=== PATIENT | female | born 1995 | race Caucasian/White ===

== ENCOUNTER 2017-01-12 15:32 | Emergency (ER) | payer OTHER ==
[~2017-01-12] VITALS: Ht 154.9 cm; Wt 46.4 kg
[2017-01-12 15:34] VITALS: BP 124/84
[2017-01-12] MEDS ORDERED: METHOCARBAMOL 750 MG TABLET ONE (16:00)
[2017-01-12] MEDS ORDERED: KETOROLAC 30 MG/1 ML ONE (16:00)
[2017-01-12] MEDS ORDERED: METHOCARBAMOL 500 MG TABLET PO ONE (16:00)
[2017-01-12] MEDS ORDERED: KETOROLAC 30 MG/1 ML IM ONE (16:00)
== END 2017-01-12 16:57 | disposition home or self-care (01) ==
LOC: ED 16:30
DX: S16.1XXA Strain of muscle, fascia and tendon at neck level, initial encounter (principal); S50.812A Abrasion of left forearm, initial encounter; S50.811A Abrasion of right forearm, initial encounter; V43.52XA Car driver injured in collision with other type car in traffic accident, initial encounter; Y93.89 Activity, other specified; Y99.8 Other external cause status; Y92.89 Other specified places as the place of occurrence of the external cause
CPT/HCPCS: 72050; 96372; 99284; J1885

== ENCOUNTER 2018-01-13 08:48 | Emergency (ER) | payer OTHER ==
[~2018-01-13] VITALS: Ht 154.9 cm; Wt 56.1 kg
[2018-01-13 08:50] VITALS: BP 126/82
[2018-01-13 10:13] LABS: ALANINE AMINOTRANSFERASE 74 U/L (12-78); ALBUMIN 3.2 g/dL (3.4-5.0); ANION GAP 6 mmol/L (5-15); CALCIUM 7.8 mg/dL (8.5-10.1); CHLORIDE 113 mmol/L (98-107); CREATININE 0.62 mg/dL (0.55-1.02)
[2018-01-13 10:27] LABS: ALKALINE PHOSPHATASE 54 U/L (45-117); BILIRUBIN,TOTAL 0.6 mg/dL (0.2-1.0); CREATINE KINASE, TOTAL 3312 U/L (26-192); TOTAL PROTEIN 5.9 g/dL (6.4-8.2)
== END 2018-01-13 11:14 | disposition home or self-care (01) ==
LOC: ED 11:08
DX: T79.6XXA Traumatic ischemia of muscle, initial encounter (principal); X58.XXXA Exposure to other specified factors, initial encounter; G43.909 Migraine, unspecified, not intractable, without status migrainosus; Z88.0 Allergy status to penicillin
CPT/HCPCS: 36415; 80053; 82550; 99284

== ENCOUNTER 2020-02-01 19:07 | Emergency (ER) | payer OTHER ==
[~2020-02-01] VITALS: Ht 160 cm; Wt 48.6 kg
[2020-02-01] MEDS ORDERED: NORE-74 PO (19:29)
--- NOTE | 2020-02-01 19:54 | NUR ---
TABATHA PIKE BS FOR EXAM. PT C/O LOWER ABD PAIN X 4 DAYS, STARTED GRADUALLY. LMP JUST STARTED. "DOESN'T FEEL LIKE MY PERIOD" PAIN. LIGHT MENSES FLOW. SEXUALLY ACTIVE; PROTECTED. PAIN IMPROVES W/ BURPING AND PASSING GAS. BM TODAY. DENIES PAIN W/ URINATION. PAIN "EXCRUTIATING" AFTER INTERCOURSE LAST NOC. NO PAIN MEDS TAKEN TODAY. PT TRAINING FOR [place]. PT REFUSING OFFER OF PAIN MED, AT THIS TIME.
--- NOTE | 2020-02-01 20:04 | NUR ---
LAST ORAL INTAKE: 1500 TODAY
[2020-02-01] MEDS ORDERED: SODIUM CHLORIDE FLUSH 10ML SYR IVF ONE (20:30)
[2020-02-01 20:41] LABS: ALANINE AMINOTRANSFERASE 20 U/L (12-78); ALBUMIN 3.9 g/dL (3.4-5.0); ANION GAP 4 mmol/L (5-15); CALCIUM 8.9 mg/dL (8.5-10.1); CHLORIDE 107 mmol/L (98-107); CREATININE 0.74 mg/dL (0.55-1.02)
[2020-02-01 20:42] LABS: BASOPHILS # (AUTO) 0.03 x10^3/uL (0-0.1); BASOPHILS % (AUTO) 0 % (0-1); EOSINOPHILS # (AUTO) 0.34 x10^3/uL (0-0.4); EOSINOPHILS % (AUTO) 5 % (1-7); LYMPHOCYTES # (AUTO) 3.36 x10^3/uL (1-3.4); LYMPHOCYTES % (AUTO) 45 % (22-44); MD NO; MEAN CORPUSCULAR HEMOGLOBIN 29.9 pg (27.0-34.8); MEAN CORPUSCULAR HGB CONC 33.9 g/dL (32.4-35.8); MEAN CORPUSCULAR VOLUME 88.1 fL (80-100); MONOCYTES # (AUTO) 0.76 x10^3/uL (0.2-0.8); MONOCYTES % (AUTO) 10 % (2-9); NEUTROPHILS # (AUTO) 3.01 x10^3/uL (1.8-6.8); NEUTROPHILS % (AUTO) 40 % (42-75); PLATELET COUNT 237 x10^3/uL (130-400); RED BLOOD COUNT 4.59 x10^6/uL (3.82-5.3); RED CELL DISTRIBUTION WIDTH 12.9 % (9.6-15.2)
--- NOTE | 2020-02-01 20:43 | NUR ---
CT PENDING LAB/BETA.
[2020-02-01 20:46] LABS: ALKALINE PHOSPHATASE 50 U/L (45-117); BILIRUBIN,TOTAL 0.4 mg/dL (0.2-1.0); TOTAL PROTEIN 7.7 g/dL (6.4-8.2)
[2020-02-01 20:57] LABS: MICROSCOPIC NOT IND
[2020-02-01] MEDS ORDERED: OMNIPAQUE 350 MG/ML, 100ML BOTTLE ONE (21:32)
--- NOTE | 2020-02-01 21:55 | NUR ---
PT REPORT TO CHRISTOFER DANG. PT CARE TRANSFERRED. PT AWAITING TEST RESULTS AND DISPOSITION.
[2020-02-01 22:15] VITALS: BP 109/59
--- NOTE | 2020-02-01 22:19 | NUR ---
PT AMBULATED TO BR WITHOUT DIFFICULTY. CHART UP FOR RECHECK.
--- NOTE | 2020-02-01 22:43 | NUR ---
ERP AT FOR RECHECK.
--- NOTE | 2020-02-01 23:08 | NUR ---
D/C INSTRUCTIONS, MEDS & F/U APPT RV'WD WITH PT, SHE VERBALIZES UNDERSTANDING. RX GIVEN X1. COPY OF CT RESULTS PROVIDED TO PT. PT AMBULATED OUT OF ED WITH BOYFRIEND WITHOUT DIFFICULTY.
== END 2020-02-01 23:08 ==
LOC: ED 23:02
DX: R10.33 Periumbilical pain (principal); R10.32 Left lower quadrant pain; R11.0 Nausea; G43.909 Migraine, unspecified, not intractable, without status migrainosus
CPT/HCPCS: 36415; 74177; 80053; 81003; 83690; 84703; 85025; 99285; Q9967

== ENCOUNTER 2020-06-07 08:11 | Day surgery (SDC) | payer OTHER ==
[~2020-06-07] VITALS: Ht 160 cm; Wt 48.2 kg
[~2020-06-07 08:11] MED LIST: NORE-74 PO
[2020-06-07] MEDS ORDERED: GLYCOPYRROLATE 0.2MG/1ML, 5ML ONE (08:44)
[2020-06-07] MEDS ORDERED: CEFAZOLIN 1,000 MG ONE (08:44)
[2020-06-07] MEDS ORDERED: CHLORHEXIDINE 15 ML UDC MM STA (09:46)
[2020-06-07] MEDS ORDERED: ACETAMINOPHEN 500 MG TABLET PO ONE (10:00)
[2020-06-07] MEDS ORDERED: LACTATED RINGERS 1,000 ML IV SCH (10:00)
[2020-06-07] MEDS ORDERED: CHLORHEXIDINE 15 ML UDC ONE (10:08)
[2020-06-07] MEDS ORDERED: NONE PER PT (10:11)
[2020-06-07 10:14] VITALS: BP 115/59
[2020-06-07 10:16] LABS: BASOPHILS % (AUTO) 1 % (0-1); EOSINOPHILS % (AUTO) 7 % (1-7); LYMPHOCYTES % (AUTO) 39 % (22-44); MEAN CORPUSCULAR HEMOGLOBIN 29.6 pg (27.0-34.8); MEAN CORPUSCULAR HGB CONC 33.4 g/dL (32.4-35.8); MEAN PLATELET VOLUME 8.3 fL (7.4-10.4); MONOCYTES % (AUTO) 10 % (2-9); NEUTROPHILS % (AUTO) 44 % (42-75); PLATELET COUNT 234 x10^3/uL (130-400); RED CELL DISTRIBUTION WIDTH 13.2 % (9.6-15.2)
[2020-06-07 10:17] LABS: MD NO
[2020-06-07] MEDS ORDERED: FENTANYL PF 100 MCG/2ML ONE (12:01)
[2020-06-07] MEDS ORDERED: PROPOFOL 10 MG/ML, 20ML ONE (12:01)
[2020-06-07] MEDS ORDERED: OXYTOCIN 10 UNITS/ML, 1ML ONE (12:02)
[2020-06-07] MEDS ORDERED: METHYLERGONOVINE 0.2 MG/ML IM ONE (12:02)
[2020-06-07] MEDS ORDERED: SILVER NITRATE STICK TP ONE (12:02)
[2020-06-07] MEDS ORDERED: LIDOCAINE-MPF 2% ,5ML ONE (12:02)
[2020-06-07] MEDS ORDERED: MISOPROSTOL 200 MCG TABLET ONE (12:02)
[2020-06-07] MEDS ORDERED: DEXAMETHASONE 4 MG/ML, 1ML ONE ×2 (12:18)
[2020-06-07] MEDS ORDERED: BUPIVACAINE/PF 0.25% INFIL ONE (12:23)
[2020-06-07] MEDS ORDERED: ONDANSETRON 2MG/ML, 2ML ONE (12:26)
[2020-06-07] MEDS ORDERED: KETOROLAC 30 MG/1 ML ONE (12:26)
[2020-06-07] MEDS ORDERED: ONDANSETRON 2MG/ML, 2ML IVPush PRN (12:30)
[2020-06-07] MEDS ORDERED: FENTANYL PF 100 MCG/2ML IV PRN (12:30)
[2020-06-07 12:31] LABS: MICROSCOPIC NOT IND
== END 2020-06-07 13:40 | disposition home or self-care (01) ==
LOC: OUT 08:11
PROVIDERS: ATTEND Obstetrics & Gynecology
DX: Z30.430 Encounter for insertion of intrauterine contraceptive device (principal); Z20.828 Contact with and (suspected) exposure to other viral communicable diseases; O03.4 Incomplete spontaneous abortion without complication; D25.9 Leiomyoma of uterus, unspecified; G43.909 Migraine, unspecified, not intractable, without status migrainosus; Z79.899 Other long term (current) drug therapy; Z88.8 Allergy status to other drugs, medicaments and biological substances; Z98.890 Other specified postprocedural states
CPT/HCPCS: 36415; 58300; 59812; 81003; 85025; 86850; 86870; 86900; 86922; 87635; 88305; J0690; J1100; J1885; J2405; J2704; J3010; J7120; J7298; 86923; J2210; J2590